=== PATIENT | female | born 1995 | race Two or more races ===

== ENCOUNTER 2021-02-23 07:25 | Emergency (ER) | payer MEDICAID ==
[~2021-02-23] VITALS: Ht 149.9 cm; Wt 49.4 kg
[2021-02-23 07:41] VITALS: BP 120/75
[2021-02-23] MEDS ORDERED: KETOROLAC TROMETH 60MG/2ML VIAL IM ONE (07:45)
[2021-02-23 08:04] LABS: Urine Bacteria FEW /hpf (None Seen); Urine Blood Negative /uL (Negative); Urine Mucus FEW (None Seen); Urine Specific Gravity 1.026 (1.001-1.035); Urine WBC 16 /hpf (0 - 5)
[2021-02-23] MEDS ORDERED: LIDOCAINE 1% HCL (LOCAL ANESTH.) INJ 20ML MDV ONE (08:10)
[2021-02-23] MEDS ORDERED: cefTRIAXone SOD 1,000 MG VL ONE (08:11)
[2021-02-23] MEDS ORDERED: cefTRIAXone SOD 1,000 MG VL IM ONE (08:15)
[2021-02-23] MEDS ORDERED: LIDOCAINE 1% HCL (LOCAL ANESTH.) INJ 20ML MDV IJ ONE (08:15)
[2021-02-23] MEDS ORDERED: IBUP600T27 PO (08:28)
[2021-02-23] MEDS ORDERED: CIPR-173 PO (08:28)
== END 2021-02-23 08:36 | disposition home or self-care (01) ==
LOC: ER 07:25
DX: N39.0 Urinary tract infection, site not specified (principal); M79.18 Myalgia, other site; Z32.02 Encounter for pregnancy test, result negative
CPT/HCPCS: 81001; 81025; 96372; 99284; J0696; J1885; J2001

== ENCOUNTER 2021-02-24 07:39 | Emergency (ER) | payer MEDICAID ==
[~2021-02-24] VITALS: Ht 149.9 cm; Wt 49.4 kg
[~2021-02-24 07:39] MED LIST: CIPR-173 PO; IBUP600T27 PO
[2021-02-24 08:10] VITALS: BP 133/95
[2021-02-24 08:32] LABS: Urine Bacteria FEW /hpf (None Seen); Urine Blood Negative /uL (Negative); Urine Mucus FEW (None Seen); Urine Specific Gravity 1.013 (1.001-1.035); Urine WBC 7 /hpf (0 - 5)
[2021-02-24 09:06] LABS: Basophils # (auto) 0 10 ^3/uL (0-0.2); Basophils % (auto) 0.2 % (0.0-2.0); Eosinophils # (auto) 0 10 ^3/uL (0-0.8); Eosinophils % (auto) 0.1 % (0.0-7.0); Hematocrit 36.2 % (36.0-46.0); Hemoglobin 11.5 g/dL (12.2-16.2); Lymphocytes % (auto) 14.3 % (10.0-50.0); Mean Corpuscular Hemoglobin 22.9 pg (28.0-32.0); Mean Corpuscular Hgb Conc. 31.9 g/dL (32.0-36.0); Mean Corpuscular Volume 71.7 fL (80.0-100.0); Monocytes # (auto) 0.6 10 ^3/uL (0-1.3); Neutrophils # (auto) 5.2 10 ^3/uL (1.6-8.6); Neutrophils % (auto) 76.4 % (37.0-80.0); Red Blood Cells 5.04 10^6/uL (4.0-5.20); Red Cell Distribution Width 17.7 % (11.8-14.3); White Blood Cell 6.7 10^3/uL (4.4-10.8)
[2021-02-24 09:24] LABS: BUN/Creatinine Ratio 12.5; Calcium 8.9 mg/dL (8.5-10.1); Potassium 3.8 mmol/L (3.5-5.1)
[2021-02-24] MEDS ORDERED: cefTRIAXone 1GM/50ML D5W 50 ML IV ONE (09:30)
[2021-02-24] MEDS ORDERED: cefTRIAXone SOD 1,000 MG VL IM ONE (09:30)
[2021-02-24] MEDS ORDERED: KETOROLAC TROMETH 30 MG/ML 1ML VIAL IV ONE (09:30)
== END 2021-02-24 09:40 | disposition home or self-care (01) ==
LOC: ER 07:39
DX: S39.012A Strain of muscle, fascia and tendon of lower back, initial encounter (principal); N39.0 Urinary tract infection, site not specified; Z79.1 Long term (current) use of non-steroidal anti-inflammatories (NSAID); Z79.2 Long term (current) use of antibiotics; X58.XXXA Exposure to other specified factors, initial encounter; Y93.89 Activity, other specified; Y92.89 Other specified places as the place of occurrence of the external cause; Y99.8 Other external cause status
CPT/HCPCS: 36415; 74176; 80048; 81001; 85025; 96372; 99284; J0696

== ENCOUNTER 2021-03-29 23:45 | Emergency (ER) | payer MEDICAID ==
[~2021-03-29] VITALS: Ht 149.9 cm; Wt 48.1 kg
[2021-03-30] VITALS: BP 128/77
== END 2021-03-30 04:23 | disposition left against medical advice (07) ==
LOC: ER 23:45
DX: R10.2 Pelvic and perineal pain (principal); M54.50 Low back pain, unspecified; Z53.21 Procedure and treatment not carried out due to patient leaving prior to being seen by health care provider

== ENCOUNTER → 2021-04-11 | Outpatient (CLI) | payer MEDICAID ==
[2021-04-11 13:58] LABS: Urine Bacteria NONE SEEN /hpf (None Seen); Urine Blood 1+ /uL (Negative); Urine Hyaline Cast FEW /lpf (0 - 2); Urine Mucus FEW (None Seen); Urine Specific Gravity 1.011 (1.001-1.035); Urine WBC 3 /hpf (0 - 5)
== END | disposition home or self-care (01) ==
LOC: LAB 07:38
PROVIDERS: ATTEND Urology
DX: N39.0 Urinary tract infection, site not specified (principal)
CPT/HCPCS: 81001; 87086